=== PATIENT | male | born 1950 | race Caucasian/White ===

== ENCOUNTER → 2017-01-21 | Day surgery (SDC) | payer OTHER ==
[~2017-01-21] VITALS: Ht 182.9 cm; Wt 70.3 kg
--- NOTE | 2017-01-21 14:26 | Operative Report ---
Operative/Inv Procedure Report Surgery Date: 01/21/17 Name of Procedure: Cataract extraction lens implantation insertion of Cypass drainage device left eye Pre-Operative Diagnosis: Age-related cataract and poorly controlled glaucoma left eye when he 31 vision 20/60 glare vision Post-Operative Diagnosis: Same Estimated Blood Loss: none Surgeon/Fructose Loader: FAUSTINO NAVARRETE MD Anesthesia: local monitored anesthesi Complications: None Operative/Procedure Note Note: The patient was brought to the operating room standard monitoring equipment was attached the patient was prepped and draped in the usual fashion for intraocular surgery. A lid speculum was placed to retract the lids. The case was begun by making 2 partial-thickness corneal relaxing incisions at 60. A temporal incision with a 2.4 mm keratome. The eye was stabilized with a Garcia ring during this incision. 1 mL of non-preserved lidocaine was introduced into the anterior chamber to provide anesthesia. The anterior chamber was then filled and deepened with viscoelastic. A curvilinear capsulorrhexis was achieved using a 30-gauge needle and is a cystotome and capsulorrhexis was finished using a Utrata forceps. A second or paracentesis incision was made temporally with a 1 mm MVR blade. The lens was then hydrodissected with balanced salt solution and found to be rotatable. The lens was emulsified using phacoemulsification and a modified four-quadrant cracking technique. The residual cortical material was removed using automated irrigation and aspiration and as much of the anterior capsular rim was cleaned as well as possible. The posterior capsule was cleaned first with the automated machine on a low setting and then manually with a Cody squeegee. The capsular bag was deepened with viscoelastic. The lens a Akreos AO60 22.5 Diopter placed into the bag under direct visualization and rotated so that the haptics were at 12 and 6:00. Additional viscoelastic was used to deepen the nasal angle the patient's head was rotated away from the surgeon by about 30 and the microscope towards the surgeon by about the same amount are present was then lubricated with viscoelastic and placed on the eye in visualization of the angle was obtained [place] device was then introduced into the anterior chamber. It was then advanced towards the angle and placed below the scleral spur of the ciliary body band there was no resistance as it disappeared from the anterior chamber behind the iris the button was pressed to release the device when only several rings behind the collar were visible. The device was then tapped into place so that the top of the device with the opening was flushed to the trabecular meshwork and there was one ring visible underneath the collar. Viscoelastic was then removed from the eye by flushing it out and then by automated irrigation and aspiration. The eye was pressurized to a normal tone. 1/10 of a cc of vancomycin solution was introduced into the anterior chamber to provide antibiotic prophylaxis. The wounds were sealed by hydrating the stroma adjacent to them and the eye was left at a proper tone after the wounds were checked and found not to be leaking. The lid speculum was removed from the orbit. Antibiotic and steroid drops were placed on the eye and then the eye was shielded. Monitoring equipment was removed from the patient and the patient was removed from the operative suite to the holding area. The patient tolerated the procedure well and will be seen in the office tomorrow.
== END ==
LOC: STS 03:15
DX: H25.9 Unspecified age-related cataract (principal); H40.89 Other specified glaucoma; E03.9 Hypothyroidism, unspecified
CPT/HCPCS: 66984; 0191T; J2250; V2632

== ENCOUNTER → 2017-01-27 | Day surgery (SDC) | payer OTHER ==
[~2017-01-27] VITALS: Ht 182.9 cm; Wt 70.3 kg
--- NOTE | 2017-01-27 14:24 | Operative Report ---
Operative/Inv Procedure Report Surgery Date: 01/27/17 Name of Procedure: Cataract extraction lens implantation insertion of Cypass glaucoma drainage device Pre-Operative Diagnosis: Age-related cataract and moderate glaucoma 20/25 vision 20/60 glare vision Post-Operative Diagnosis: Same Estimated Blood Loss: none Surgeon/Credit Clerk: FAUSTINO NAVARRETE MD Anesthesia: local monitored anesthesi Complications: None Operative/Procedure Note Note: The patient was brought to the operating room standard monitoring equipment was attached the patient was prepped and draped in the usual fashion for intraocular surgery. A lid speculum was placed to retract the lids. The case was begun by making a temporal incision with a 2.4 mm keratome. The eye was stabilized with a Garcia ring during this incision. 1 mL of non-preserved lidocaine was introduced into the anterior chamber to provide anesthesia. The anterior chamber was then filled and deepened with viscoelastic. A curvilinear capsulorrhexis was achieved using a 30-gauge needle and is a cystotome and capsulorrhexis was finished using a Utrata forceps. A second or paracentesis incision was made temporally with a 1 mm MVR blade. The lens was then hydrodissected with balanced salt solution and found to be rotatable. The lens was emulsified using phacoemulsification and a modified four-quadrant cracking technique. The residual cortical material was removed using automated irrigation and aspiration and as much of the anterior capsular rim was cleaned as well as possible. The posterior capsule was cleaned first with the automated machine on a low setting and then manually with a Cody squeegee. The capsular bag was deepened with viscoelastic. The lens a Akreos AO60 25.0 Diopter placed into the bag under direct visualization and rotated so that the haptics were at 12 and 6:00. His chamber was then reinflated with viscoelastic especially in the nasal angle. A gonioprism was lubricated with viscoelastic on its underside and placed on top of the eye. Visualization of the angle was obtained. The Cypass device was then introduced into the eye and towards the anterior chamber angle and then placed above the iris and below the scleral spur until 1 of the rings around the device was visible in the anterior chamber. Viscoelastic was then removed from the eye by flushing it out and then by automated irrigation and aspiration. The eye was pressurized to a normal tone. 1/10 of a cc of vancomycin solution was introduced into the anterior chamber to provide antibiotic prophylaxis. The wounds were sealed by hydrating the stroma adjacent to them and the eye was left at a proper tone after the wounds were checked and found not to be leaking. The lid speculum was removed from the orbit. Antibiotic and steroid drops were placed on the eye and then the eye was shielded. Monitoring equipment was removed from the patient and the patient was removed from the operative suite to the holding area. The patient tolerated the procedure well and will be seen in the office tomorrow.
== END ==
LOC: STS 02:32
DX: H25.9 Unspecified age-related cataract (principal); H40.89 Other specified glaucoma; E07.9 Disorder of thyroid, unspecified; J32.9 Chronic sinusitis, unspecified
CPT/HCPCS: J2250; V2632